=== PATIENT | male | born 1985 | race Caucasian/White ===

== ENCOUNTER 2020-10-30 15:43 | Emergency (ER) | payer OTHER, SELFPAY ==
--- NOTE | ~2020-10-30 | XR_ITS ---
EXAMINATION: XR chest 2V EXAM DATE: 10/30/2020 16:17 INDICATION: L CP STARTING YESTERDAY, COVID+ SINCE 10/25 . TECHNIQUE: Frontal and lateral projections of the chest obtained and reviewed. There is no prior maude dy for comparison. FINDINGS: The lungs are clear. There are no pleural effusions. The cardiomediastinal silhouette is within normal limits. There is no pneumothorax suspected. The bones and soft tissues are unremarkab le. IMPRESSION: No acute cardiopulmonary findings. Reviewed, dictated and finalized at location B.
--- NOTE | 2020-10-30 15:51 | ECG_ITS ---
Measurements Intervals [place] Rate: 65 P: 41 LA: 153 QRS: 41 QRSD: 94 T: 24 QT: 379 QTc: 396 Interpretive Statements SINUS RHYTHM NORMAL ECG Electronically Signed On 10-30-2020 16:39:58 CDT by Kyle Felder D.O.
[2020-10-30 16:02] LABS: Basophils Percent Auto 0.8 % (0.2-1.2); Eosinophils Absolute Auto 0.2 K/mm3 (0-0.3); Eosinophils Percent Auto 3.8 % (0-4.4); Hemoglobin 16.2 g/dL (14.0-18.0); Immature Granulocyte Absolute 0.01 K/mm3 (0.00-0.031); Immature Granulocyte Percent A 0.3 % (0-0.5); Lymphocytes Absolute Auto 1.28 K/mm3 (0.9-3.2); Lymphocytes Percent Auto 32.6 % (18.3-44.2); Mean Corpuscular HGB Conc 33.8 g/dl (32-36); Mean Corpuscular Hemoglobin 30.4 pg (26-34); Mean Corpuscular Volume 90.1 fl (80-100); Mean Platelet Volume 10.4 fl (7.4-10.4); Monocytes Absolute Auto 0.4 K/mm3 (0.1-0.6); Monocytes Percent Auto 10.2 % (2.6-8.5); Neutrophils Absolute Auto 2.1 K/mm3 (1.3-6.7); Neutrophils Percent Auto 52.3 % (45.5-73.1); Platelet Count Result 163 k/mm3 (150-375); Red Blood Count 5.33 M/mm3 (4.6-6.20); Red Cell Distribution Width 12.7 % (11.5-14.5); White Blood Count 3.9 K/mm3 (4.5-10.0)
[2020-10-30 16:12] LABS: Anion Gap 8 mmol/L (8-16); Blood Urea Nitrogen 16 mg/dL (9-20); Calcium 8.7 mg/dL (8.4-10.2); Carbon Dioxide 24 mmol/L (22-30); Chloride 106 mmol/L (98-107); Estimated Glomerular Filt Rate > 60; Glucose 105 mg/dL (65-110); Potassium 3.8 mmol/L (3.4-5.0); Sodium 138 mmol/L (137-145)
[2020-10-30 16:14] LABS: INR 0.9; Prothrombin Time 11.8 Seconds (11.1-14.7)
[2020-10-30 16:15] LABS: Partial Thromboplastin Time 25.6 SECONDS (22.3-36.8)
[2020-10-30 16:22] VITALS: BP 133/90; PULSE 71; RESP 18; TEMP 37.6; O2SAT 98
[2020-10-30 16:23] LABS: Troponin I < 0.012 ng/mL (0.000-0.034)
[2020-10-30 20:32] VITALS: BP 139/92; PULSE 72; RESP 18; TEMP 36.2; O2SAT 100
--- NOTE | 2020-10-30 21:03 | ED.CHESTPAIN ---
HPI - Chest Pain General Chief Complaint: Chest Pain Stated Complaint: pain left chest Time Seen by Provider: 10/30/20 21:03 Source: patient Mode of arrival: ambulatory Limitations: no limitations History of Present Illness HPI narrative: Patient is a 35-year-old male complaining of chest pain, described as tightness, left chest, nonradiating, 6 out of 10, started 2 days ago. Patient states that he was diagnosed with Covid last week. Patient denies any shortness of breath, abdominal pain, nausea, vomiting, diaphoresis, fever or chills. Related Data Allergies Allergy/AdvReac Type Severity Reaction Status Date / Time No Known Allergies Allergy Verified 10/30/20 21:05 Review of Systems Review of Systems: All systems reviewed & are unremarkable except as noted in HPI and below Constitutional: Constitutional: Denies body ache(s), Denies chills, Denies excessive sweating, Denies fatigue, Denies fever(s), Denies headache(s), Denies lethargy, Denies malaise, Denies weakness and Denies weight loss Eyes: Eyes: Denies blurry vision, Denies change in vision and Denies loss of vision ENT: Denies dizziness, Denies ear discharge, Denies headache(s), Denies lip swelling, Denies epistaxis, Denies nasal congestion, Denies neck pain, Denies throat swelling and Denies tongue swelling Cardiovascular: Cardiovascular: Denies chest pain, Denies chest pain at rest, Denies chest pain with activity, Denies diaphoresis, Denies rapid heart rate, Denies edema, Denies irregular heart rhythm, Denies lightheadedness, Denies palpitations, Denies dyspnea and Denies dyspnea on exertion Respiratory: Respiratory: Denies chest congestion, Denies cough, Denies hemoptysis, Denies dyspnea and Denies dyspnea on exertion Gastrointestinal: Gastrointestinal: Denies abdominal pain, Denies melena, Denies hematochezia, Denies diarrhea, Denies nausea, Denies vomiting and Denies hematemesis Musculoskeletal: Musculoskeletal: Denies abnormal gait, Denies deformity, Denies joint swelling, Denies limited range of motion, Denies neck pain and Denies numbness Neurologic: Denies Abnormal speech present, Denies abnormal gait, Denies confusion, Denies dizziness, Denies headache(s), Denies focal weakness, Denies loss of vision, Denies numbness, Denies Other visual disturbances, Denies Sensory deficit (Neuro) and Denies weakness Psychiatric: Psychiatric: Denies confusion, Denies depression, Denies auditory hallucinations, Denies homicidal ideation and Denies suicidal ideation Endocrine: Endocrine: Denies cold intolerance, Denies excessive sweating, Denies fatigue, Denies heat intolerance and Denies palpitations Hematologic/Lymphatic: Hematologic/Lymphatic: Denies easy bleeding and Denies easy bruising Allergic/Immunologic: Allergic/Immunologic: Denies lip swelling, Denies throat swelling and Denies tongue swelling PMFSH Comments Past medical history: None Family history: Negative for coronary disease, [place] Social history: Non-smoker no EtOH or drug use Exam Const: General: cooperative, healthy appearing, comfortable, no acute distress, well developed, alert and awake; No confusion Orientation/consciousness: oriented to person, oriented to place, oriented to time, patient oriented x3 and No confusion Limitations: no limitations HENMT: Head: normal to inspection, normocephalic and atraumatic Ears: hearing grossly normal bilaterally, TM normal on the right and TM normal on the left General nose exam: Normal external nose present, Normal nares present and No nasal discharge present Face and sinus: normal facial exam Mouth: Yes Normal oral and palatal mucosa present, Yes lip normal, Yes tongue normal and Yes oropharynx normal Throat: posterior oropharynx normal, tonsils normal and uvula midline Eyes: General: appearance normal, both eyes and all related structures Pupils: Equal, round and reactive pupils present EOM: EOMs intact bilaterally Neck: Neck: normal visual inspection, full ROM,
[2020-10-30] MEDS: ASPIRIN 81 MG CHEWABLE TABLET 324 MG PO (21:06)
[2020-10-30 21:07] VITALS: BP 123/88; PULSE 66; PULSE 79; RESP 13; TEMP 37.4; O2SAT 100
[2020-10-30 22:01] VITALS: BP 119/85; PULSE 67; RESP 20; O2SAT 99
[2020-10-30 22:02] LABS: Troponin I < 0.012 ng/mL (0.000-0.034)
[2020-10-30 22:47] VITALS: BP 122/90; PULSE 66; RESP 20; O2SAT 98
== END 2020-10-30 22:50 | disposition home or self-care (01) ==
PROVIDERS: Emergency Medicine; Emergency Provider Emergency Medicine; PCP Internal Medicine
DX: R07.89 Other chest pain (principal)
CPT/HCPCS: 36415; 71046; 80048; 84484; 85025; 85610; 85730; 93005; 99284; A9270

== ENCOUNTER 2023-01-19 13:13 | Emergency (ER) | payer OTHER, SELFPAY ==
--- NOTE | ~2023-01-19 | XR_ITS ---
EXAMINATION: XR chest 2V 01/19/2023 13:47 INDICATION: Chest pain PROCEDURE: 2 view chest COMPARISON: 10/30/2020 FINDINGS: The lungs are clear. The cardiomediastinal silhouette is within normal limits. There are no pleural effusions. There is no pneumothorax suspected. IMPRESSION: 1: NO ACUTE CARDIOPULMONARY DISEASE. Reviewed, dictated and finalized at location B. [facility]
--- NOTE | 2023-01-19 13:26 | ECG_ITS ---
Measurements Intervals [place] Rate: 69 P: 45 DC: 159 QRS: 20 QRSD: 94 T: 18 QT: 375 QTc: 404 Interpretive Statements SINUS RHYTHM BASELINE ARTIFACT- I, II, III, AVR, AVL, AVF, V5 NORMAL ECG COMPARED TO ECG 10/30/2020 15:51:16 NO SIGNIFICANT CHANGES Electronically Signed On 01-19-2023 13:42:35 PULLER OUT by Kyle Felder D.O.
[2023-01-19 13:36] LABS: Basophils Absolute Auto 0.1 K/mm3 (0.0-0.1); Basophils Percent Auto 0.9 % (0.2-1.2); Eosinophils Absolute Auto 0.4 K/mm3 (0-0.3); Eosinophils Percent Auto 4.3 % (0-4.4); Hematocrit 47.8 % (42.0-52.0); Immature Granulocyte Absolute 0.02 K/mm3 (0.00-0.031); Immature Granulocyte Percent A 0.2 % (0-0.5); Lymphocytes Absolute Auto 1.76 K/mm3 (0.9-3.2); Lymphocytes Percent Auto 21.7 % (18.3-44.2); Mean Corpuscular HGB Conc 33.5 g/dl (32-36); Mean Corpuscular Hemoglobin 30.1 pg (26-34); Mean Platelet Volume 10.5 fl (7.4-10.4); Monocytes Absolute Auto 0.6 K/mm3 (0.1-0.6); Monocytes Percent Auto 7.6 % (2.6-8.5); Neutrophils Absolute Auto 5.3 K/mm3 (1.3-6.7); Neutrophils Percent Auto 65.3 % (45.5-73.1); Platelet Count Result 231 k/mm3 (150-375); Red Blood Count 5.31 M/mm3 (4.6-6.20); Red Cell Distribution Width 12.9 % (11.5-14.5); White Blood Count 8.1 K/mm3 (4.5-10.0)
[2023-01-19 13:38] VITALS: BP 131/97; PULSE 78; RESP 16; O2SAT 98
[2023-01-19] MEDS: ASPIRIN 81 MG CHEWABLE TABLET 324 MG PO (13:38)
[2023-01-19 13:44] LABS: Alanine Aminotransferase 44 U/L (6-50); Albumin Level 4.8 g/dL (3.5-5.1); Alkaline Phosphatase 74 U/L (38-126); Anion Gap 11 mmol/L (8-16); Aspartate Amino Transferase 49 U/L (17-59); Bilirubin,Total 0.7 mg/dL (0.2-1.3); Blood Urea Nitrogen 18 mg/dL (9-20); Calcium 9.4 mg/dL (8.4-10.2); Carbon Dioxide 24 mmol/L (22-30); Chloride 102 mmol/L (98-107); Estimated CRCL calculation 107 ml/min; Estimated Glomerular Filt Rate > 60; Glucose 95 mg/dL (65-110); Lipase 98 U/L (23-300); Potassium 3.7 mmol/L (3.4-5.0); Sodium 137 mmol/L (137-145)
[2023-01-19 13:46] LABS: INR 0.9; Partial Thromboplastin Time 29.2 SECONDS (22.3-36.8); Prothrombin Time 12.9 Seconds (11.1-14.7)
[2023-01-19 13:56] LABS: Troponin I < 0.012 ng/mL (0.000-0.034)
--- NOTE | 2023-01-19 14:22 | ED.CHESTPAIN ---
HPI - Chest Pain General Chief Complaint: Chest Pain Stated Complaint: chest pain Time Seen by Provider: 01/19/23 13:22 History of Present Illness HPI narrative: Patient is a 37-year-old male who presents ER for evaluation chest pain. Ongoing over last week. Worse at night these lying down but also notices it at the end of the day. No chest pain today on the yesterday. It is not associated with exertion. Reports he has been under increased stress due to thoughts of changing his job. No runny nose or sore throat or productive cough. No recent trauma to the chest. Cannot describe aggravating factors. No family history of heart disease. Related Data Home Medications Medication Instructions Recorded Confirmed tadalafil 5 mg tablet mg 01/19/23 Allergies Allergy/AdvReac Type Severity Reaction Status Date / Time No Known Allergies Allergy Verified 01/19/23 13:15 Review of Systems Review of Systems: All systems reviewed & are unremarkable except as noted in HPI and below Constitutional: Constitutional: Denies chills and Denies fever(s) ENT: Denies nasal congestion and Denies sore throat Cardiovascular: Cardiovascular: Reports chest pain, Denies rapid heart rate and Denies radiating jaw, neck or arm pain Respiratory: Respiratory: Denies cough, Denies dyspnea and Denies wheezing Gastrointestinal: Gastrointestinal: Denies abdominal pain, Denies nausea and Denies vomiting Psychiatric: Psychiatric: Reports anxiety and Denies depression PMFSH Past Medical History Medical History (Updated 01/19/23 @ 18:08 by Sadi Hamilton MD) Erectile dysfunction Surgical History Surgical History (Updated 01/19/23 @ 18:08 by Sadi Hamilton MD) No pertinent past surgical history Exam Narrative: GENERAL: Well-appearing, well-nourished, and in no acute distress. HEAD: Normocephalic, atraumatic. ENT: Mucous membranes moist. CHEST: Clear to auscultation. No respiratory distress. HEART: Regular rate and rhythm. Normal peripheral pulses. ABDOMEN: Soft, nontender, nondistended. EXTREMITIES: Normal range of motion. No edema. SKIN: Warm, dry, no rash. NEURO: Alert and oriented x3. PSYCH: Normal mood and affect. Course Course Emergency Course: Patient resting comfortably. Chest pain-free. Heart score 0. [place] appropriate for discharge. Vital Signs Vital signs: Vital Signs Pulse Rate 78 01/19/23 13:38 Respiratory Rate 16 01/19/23 13:38 Blood Pressure 131/97 H 01/19/23 13:38 Pulse Oximetry 98 01/19/23 13:38 Pulse Rate 71 01/19/23 14:43 Respiratory Rate 18 01/19/23 14:43 Blood Pressure 127/95 H 01/19/23 14:43 Pulse Oximetry 99 01/19/23 14:43 MDM - Chest Pain Lab Data 01/19/23 13:29 01/19/23 13:29 Labs: Lab Results 01/19/23 Range/Units 13:29 WBC 8.1 (4.5-10.0) K/mm3 RBC 5.31 (4.6-6.20) M/mm3 Hgb 16.0 (14.0-18.0) g/dL Hct 47.8 (42.0-52.0) % MCV 90.0 (80-100) fl MCH 30.1 (26-34) pg MCHC 33.5 (32-36) g/dl RDW 12.9 (11.5-14.5) % Plt Count 231 (150-375) k/mm3 MPV 10.5 H (7.4-10.4) fl Immature Gran % (Auto) 0.2 (0-0.5) % Neut % (Auto) 65.3 (45.5-73.1) % Lymph % (Auto) 21.7 (18.3-44.2) % [place] % (Auto) 7.6 (2.6-8.5) % Eos % (Auto) 4.3 (0-4.4) % Baso % (Auto) 0.9 (0.2-1.2) % Lymph # (Auto) 1.76 (0.9-3.2) K/mm3 [place] # (Auto) 0.6 (0.1-0.6) K/mm3 Eos # (Auto) 0.4 H (0-0.3) K/mm3 Baso # (Auto) 0.1 (0.0-0.1) K/mm3 Abs Immat Gran (auto) 0.02 (0.00-0.031) K/mm3 Absolute Neuts (auto) 5.3 (1.3-6.7) K/mm3 Absolute Nucleated RBC 0.0 (0.0-0.012) K/mm3 Nucleated RBC % 0.0 (0.0-0.2) % PT 12.9 (11.1-14.7) Seconds INR 0.9 APTT 29.2 (22.3-36.8) SECONDS Sodium 137 (137-145) mmol/L Potassium 3.7 (3.4-5.0) mmol/L Chloride 102 (98-107) mmol/L Carbon Dioxide 24 (22-30) mmol/L Anion Gap 11 (8-16) mmol/L BUN 18 (9-20) mg/dL Creatinine 0.90 (0.7-1.3
[2023-01-19 14:43] VITALS: BP 127/95; PULSE 71; RESP 18; O2SAT 99
== END 2023-01-19 14:44 | disposition home or self-care (01) ==
LOC: ANHED 14:40
PROVIDERS: Emergency Provider Emergency Medicine; PCP Family Medicine
DX: R07.9 Chest pain, unspecified (principal)
CPT/HCPCS: 36415; 71046; 80053; 83690; 84484; 85025; 85610; 85730; 93005; 99284; A9270